=== PATIENT | male | born 1945 | race Caucasian/White ===

== ENCOUNTER → 2019-04-15 | Outpatient (CLI) | payer OTHER, MEDICARE ==
[~2019-04-15] VITALS: Ht 177.8 cm; Wt 117.9 kg
[~2019-04-15] MED LIST: ASPIR 8181 MG PO; ATENOLOL 50MG T50 M1 PO; COREG25 MG PO; HYDROCHLOROTHIA25 M2 PO; LOSARTAN POTAS100 MG PO; MILK THISTLE150 MG PO; OMEGA 3-6-9 11200 M1 PO; OMEPRAZOLE40 MG PO; PRESERVISION A1 EAC2 PO; REFRESH OPTIVE15 ML OPHTHALMIC; SYSTANE GEL10 GM OPHTHALMIC; TURMERIC500 M2 PO; VITAMIN B-12500 MCG PO; ZYLOPRIM300 MG PO
--- NOTE | 2019-04-15 13:26 | P ---
[facility] [place] [address] PROCEDURE REPORT Name: ANEUDYEDUARDO Quinn Room #: REG [facility].#: [id number] Admission: 04/15/19 Attend Phys: Eran Padgett MD Discharge: Date of : 49 Report #: [id number] THIS REPORT FOR: //name// CC: Eran Lopez MEDICAL OFFICE ASST DATE OF SERVICE: 04/15/2019 OUTPATIENT COLONOSCOPY REPORT BRIEF HISTORY: The patient is a 73-year-old male with a history of multiple adenomas for high risk screening colonoscopy. PREOPERATIVE DIAGNOSIS: High risk screening colonoscopy. POSTOPERATIVE DIAGNOSES: 1. Diminutive polyp at 60 cm. 2. Moderate sigmoid diverticulosis coli. 3. Small internal hemorrhoids. MEDICATIONS: Deep sedation with propofol per anesthesia. SPECIMEN: Polyp from 60 cm. ESTIMATED BLOOD LOSS: 3 mL. PROCEDURE: Colonoscopy to cecum and terminal ileum with biopsy. FINDINGS: Prior to propofol sedation, procedure of colonoscopy discussed with the patient as well as potential risks and its complications. He indicates he understands and desires to proceed. DESCRIPTION OF PROCEDURE: With the patient in left lateral decubitus position, digital examination was completed, which revealed no abnormalities. Subsequently, the Olympus video colonoscope was introduced into the rectum, advanced under direct vision to the cecum. Done with minimal difficulty where the cecum was identified by the ileocecal valve and the appendiceal orifice. I was able to visualize the distal segment of the terminal ileum, which was inspected and noted to be unremarkable. At that point, the scope was slowly withdrawn and careful circumferential views were obtained. Upon slow withdrawal of the scope, the prep was generally good, although there were some limitations with some retained bilious material in the proximal colon. This was cleaned up as well as possible. As we withdrew the scope, the mucosa was inspected and noted to be within normal limits, normal vascular pattern, normal light reflex. No abnormalities were noted until we withdrew the scope into the descending [facility] [address] [place] [address] PROCEDURE REPORT Name: EDUARDO AMADO Room #: REG [facility].#: [id number] Admission: 04/15/19 Attend Phys: Eran Padgett MD Discharge: Date of : 49 Report #: [id number] colon at 60 cm. A diminutive polyp was seen and removed with biopsy forceps. Scope was further withdrawn and no additional polyps were seen. In the sigmoid colon, there was noted to be moderate diverticular disease without endoscopic evidence of diverticulitis. Scope was withdrawn in the rectum, no abnormalities were seen. Upon retroflexion, small hemorrhoids were seen. Scope was withdrawn. The patient tolerated the procedure well. CONDITION OF THE PATIENT UPON DISCHARGE: Following procedure, the patient drowsy, aroused, conversant and will be discharged home when fully ambulatory. INSTRUCTIONS TO THE PATIENT AND FAMILY AT THE TIME OF DISCHARGE: We will follow up on the path. However, in view of his history of polyps and finding of polyps today, I suggest followup colon exam in 5 years. Also, suggest high-fiber diet. He will return to care of Aury Lopez, return to see me as needed. Withdrawal time from the cecum was 16 minutes 56 seconds. <ELECTRONICALLY SIGNED> By: Eran Padgett MD 04/15/19 1326 0811 1050 Eran Padgett MD /nt
--- NOTE | 2019-04-18 18:06 | PATH ---
[facility] [address] [place] [address] PATHOLOGY RPT PROCEDURE Name: MIKI HALEY Quinn Room #: REG [facility] Sha.#: [id number] Admission: 04/15/19 Date of : 49 Discharge: Report #: [id number] Path Case #: [id number] [facility] Accession Number: [id number] . 01 Material submitted: . colon - BIOPSY POLYP AT 60CM . 01 Clinical history: . Pre-OP DX: Hx polyps Post-OP DX: Colon polyp, diverticulosis, hemorrhoids . 02 Diagnosis: Polyp, at 60 cm, endoscopic biopsy: - Tubular adenoma. - Negative for high-grade dysplasia. (IUV:pit; 04/18/2019) QTP/04/18/2019 . 02 Electronically signed: . Janis Beltrán MD, Pathologist NPI- [id number] . 01 Gross description: . Received in formalin labeled "Miki Haley, BX polyp at 60 cm," is a single segment of mtz soft tissue measuring 0.5 cm in maximum dimension. The specimen is entirely submitted in cassette A1. (TSD; 04/15/2019) TOB/TOB . 02 Pathologist provided ICD-10: D12.6 . 02 CPT . 522720 Specimen Comment: A courtesy copy of this report has been sent to Specimen Comment: [phone], . Specimen Comment: Report sent to / DR ARMSTRONG Performed at: [address] [id number] MD Rickie Crawford MD Phone: [phone] Performed at: [address] [id number] MD Janis Beltrán MD Phone: [phone]
== END | disposition home or self-care (01) ==
LOC: GI 06:20
DX: Z12.11 Encounter for screening for malignant neoplasm of colon (principal); Z86.010 Personal history of colon polyps; D12.4 Benign neoplasm of descending colon; K57.30 Diverticulosis of large intestine without perforation or abscess without bleeding; K64.8 Other hemorrhoids; G47.30 Sleep apnea, unspecified; I10 Essential (primary) hypertension; E78.5 Hyperlipidemia, unspecified; K21.9 Gastro-esophageal reflux disease without esophagitis; I48.91 Unspecified atrial fibrillation; G62.9 Polyneuropathy, unspecified; Z98.41 Cataract extraction status, right eye; Z98.42 Cataract extraction status, left eye; Z87.891 Personal history of nicotine dependence; Z79.899 Other long term (current) drug therapy; Z79.82 Long term (current) use of aspirin; Z79.01 Long term (current) use of anticoagulants
CPT/HCPCS: 62110; 62900

== ENCOUNTER → 2020-07-11 | Outpatient (CLI) | payer OTHER, MEDICARE | LOC: LAB 14:53 | PROVIDERS: ATTEND Family Medicine | DX: U07.1 COVID-19 (principal) ==

== ENCOUNTER 2020-07-16 09:03 | Inpatient (IN) | payer OTHER, MEDICARE ==
[~2020-07-16] VITALS: Ht 177.8 cm; Wt 108.4 kg
--- NOTE | ~2020-07-16 | HC ---
[facility] [place] [address] CONSULTATION Name: EDUARDO AMADO Room #: 353-[facility] IN M.R.#: [id number] Admission: 07/16/20 Attend Phys: Felipe Sotddard MD Discharge: Date of : 49 Report #: [id number] THIS REPORT FOR: cc: Aury Lopez DNP, Mary E. DNP Elia, Manana MD ~ DATE OF SERVICE: 07/22/2020 SUBJECTIVE: Per nurse report, the patient is doing okay. He does not have headaches, does not have any bleeding epistaxis. VITAL SIGNS: Blood pressure 135/77, heart rate 79, temperature 97.3. Physical exam is not done because the patient is in COVID-19 isolation. LABORATORY DATA: White count 13.5, hemoglobin 10.4, platelets 2. ASSESSMENT AND PLAN: 1. Idiopathic thrombocytopenic purpura. The patient's platelets were somewhat better yesterday, today down again to 2. He did not respond to IVIG. He will be seen by Dr. Collier tomorrow. Dr. Collier is planning to start Rituxan. 2. Anemia, stable. By: 2316 0149 Louise Bales MD /nt
[2020-07-16 09:08] VITALS: BP 139/79
[2020-07-16] MEDS ORDERED: METFORMIN HCL500 M3 PO (09:32)
[2020-07-16] MEDS ORDERED: DILTIAZEM 24HR240 M1 PO (09:32)
[2020-07-16 11:06] LABS: BASOPHILS 0.4 % (0.0-2.0); EOSINOPHILS 1.8 % (0.0-3.0); HEMATOCRIT 37.7 % (42.0-52.0); LYMPHOCYTES 15.2 % (24.0-44.0); MCH 30.8 pg (26.0-34.0); MCHC 34.3 g/dL (28.0-37.0); MCV 89.8 fL (80.0-100.0); MONOCYTES 8.2 % (1.0-8.0); POLYS 74.4 % (36.0-66.0); RDW 14.3 % (10.5-14.5); WBC 6.8 thou/uL (4.0-11.0)
[2020-07-16 11:13] LABS: CALCIUM 9.5 mg/dL (8.5-10.1); POTASSIUM 4.1 mmol/L (3.5-5.1)
[2020-07-16 11:20] LABS: INR 1.1; PROTIME 11.4 Seconds (9.3-11.4)
[2020-07-16 11:28] LABS: PLATELET ESTIMATE MARKEDLY DECREASED
[2020-07-16 11:30] LABS: PLATELET COUNT 3 thou/uL (150-400)
[2020-07-16 12:34] LABS: URINE BILIRUBIN NEGATIVE (Negative); URINE BLOOD 2+ (Negative); URINE CLARITY CLEAR; URINE COLOR YELLOW; URINE GLUCOSE-RANDOM* NEGATIVE (Negative); URINE KETONES NEGATIVE (Negative); URINE LEUKOCYTES-REFLEX NEGATIVE (Negative); URINE NITRITE-REFLEX NEGATIVE (Negative); URINE PROTEIN (DIPSTICK) NEGATIVE (Negative); URINE SPECIFIC GRAVITY 1.015 (1.005-1.035)
[2020-07-16 12:54] LABS: CASTS None Seen /LPF (None Seen); CRYSTALS None Seen /LPF (None Seen); SQUAMOUS 0-3 Few /LPF (0-3); URINE RBC >20 Many /HPF (0-2); URINE WBC-REFLEX 0-5 Rare /HPF (0-5)
[2020-07-16 12:55] LABS: BACTERIA-REFLEX 1-9 Few /HPF (None Seen)
[2020-07-16 15:31] LABS: % SATURATION 18 % (20-39); IRON 47 ug/dL (65-175); TIBC 264 ug/dL (250-450)
[2020-07-16 15:39] VITALS: BP 124/89; BP 132/87
--- NOTE | 2020-07-16 17:33 | NUR ---
PER DR GALVEZ, HOLDING OFF ON 2ND TRANSFUSION UNTIL REPEAT PLATELET COUNT
[2020-07-16 18:13] VITALS: BP 138/69
[2020-07-16 19:28] VITALS: BP 127/71
[2020-07-16 19:55] VITALS: BP 139/81
[2020-07-17] VITALS (7 sets, daily range): BP systolic 129–152; BP diastolic 70–101
--- NOTE | 2020-07-17 02:56 | NUR ---
ASSUMED CAER OF PT FROM ED AT 2000HRS. PT AOX4 AND UP AD MARCO. PT WAS ORIENTED TO THE UNIT AND HIS ROOM. PT WAS ABLE TO ANSWER ALL ADMISSION RELATED QUESTIONS AND PROVIDE VERBAL CONSENT. PT HAS A BLEEDING LEISION ON THE RIGHT SIDE OF HIS MOUTH. UNABLE TO TAKE PICTURE DUE TO LOCATION OF THE WOUND. SECOND PLATELET TRANSFUSED. PT IS AFIB ON TELE. PT WAS ABLE TO GET COMFORTABLE AND SLEEP PART OF THE SHIFT. WILL CONTINUE TO MONITOR.
[2020-07-17 03:06] LABS: HEMOGLOBIN 13.1 g/dL (13.0-17.7)
[2020-07-17 05:00] LABS: EOSINOPHILS 0.1 % (0.0-3.0); HEMOGLOBIN 12.2 gm/dL (14.0-18.0); WBC 7.7 thou/uL (4.0-11.0)
[2020-07-17 05:01] LABS: ABSOLUTE NEUTROPHILS 6.8 thou/uL (1.4-8.2); BASOPHILS 0.4 % (0.0-2.0); HEMATOCRIT 35.6 % (42.0-52.0); LYMPHOCYTES 9.9 % (24.0-44.0); MCH 30.8 pg (26.0-34.0); MCHC 34.4 g/dL (28.0-37.0); MCV 89.5 fL (80.0-100.0); POLYS 87.6 % (36.0-66.0); RBC 3.97 mil/uL (4.50-6.00); RDW 14.1 % (10.5-14.5)
[2020-07-17 05:29] LABS: PLATELET COUNT 2 thou/uL (150-400)
[2020-07-17 05:53] LABS: ALBUMIN 3.3 g/dL (3.4-5.0); CALCIUM 9.7 mg/dL (8.5-10.1); POTASSIUM 3.8 mmol/L (3.5-5.1); TOTAL BILIRUBIN 0.4 mg/dL (0.2-1.0); TOTAL PROTEIN 7.7 g/dL (6.4-8.2)
[2020-07-17 07:07] LABS: PLATELET ESTIMATE MARKEDLY DECREASED
--- NOTE | 2020-07-17 14:10 | NUR ---
INITIAL ASSESSMENT: SW reviewed chart and spoke with nursing and attending physician. Pt was admitted from home due to COVID-19. Pt is in Enhanced Isolation. Pt is afebrile and not requiring O2. Pt is on IV abx. Hem/Onc consulted. Pt to be on IVIG. Pt with hx of DM/HTN/SARA. Pt with daily ETOH use. SW spoke with pt via phone. Introduced role of SW. Pt is alert/orientated x 4. Pt reports he lives at home alone. Prior to admission, pt was independent with ADLs. No use of DME. Pt does drive. 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 No hx of services or post-acute placement. Pt's PCP is Dr. Aury Lopez. Pt states his goal is to return home. SW is following to assist as needed with discharge planning.
--- NOTE | 2020-07-17 18:08 | NUR ---
ASSUMED PATIENT CARE AT 0700. A/O X4. NO SOB NOTED. VSS. TOLERATED ON RA. NO BLEEDING NOTED. SLOWLY TOWARDS POC GOALS.
[2020-07-17 22:06] LABS: IgA 317 mg/dL (61-437); IgG 1080 mg/dL (603-1613); IgM 190 mg/dL (15-143)
[2020-07-18 03:14] VITALS: BP 143/93
--- NOTE | 2020-07-18 05:57 | NUR ---
ENT ROUNDED ON PT. ORDERS RECEIVED. PT WILL NEED TO F/U OUTPATIENT. FOLLOWING POC WITH IVPB ANTIBIOTIC AND IGG IVF. PT USES CPAP AT HS. VSS, AFEBRILE AND NO COMPLAINTS.
[2020-07-18 07:28] VITALS: BP 132/82
--- NOTE | 2020-07-18 08:39 | HC ---
[facility] [place] [address] CONSULTATION Name: EDUARDO AMADO Room #: 353-P [facility] IN M.R.#: [id number] Admission: 07/16/20 Attend Phys: Felipe Stoddard MD Discharge: Date of : 49 Report #: [id number] THIS REPORT FOR: cc: Aury Lopez DNP, Mary E. DNP McKittrick, Richard James MD ~ REQUESTING PHYSICIAN: Dr. Felipe Stoddard. REASON FOR CONSULTATION: Thrombocytopenia. HISTORY OF PRESENT ILLNESS: The patient is a very pleasant 74-year-old gentleman who has a history of about 10 days prior to admission, losing his sense of smell, tested positive for COVID I believe about 6 days ago if I understand correctly and then was noted about 3 days prior to have a blood blister in his mouth where he may have bit himself. He came to the Emergency Room because he tested positive for COVID 6 days ago. He had fatigue, which had been improving, noted a sore inside of his mouth, also had nosebleeds. He never had this issue before. In the Emergency Room, he was found to have platelets of 3000 and in spite of 2 different transfusions, the platelets are 2000, 3000 and today 2000. During the same time, his white count has been 6.8, now 7.7; hemoglobin 13, now 12.2; MCV 89.8, now 89.5; RDW 14.1, white count differential stable without any acute changes. On the peripheral smear, his white count is described as 5. Electrolytes are normal including creatinine of 1, glucose slightly elevated at 182, AST 29, SGPT 33, albumin 3.3, LDH 463, iron was 47, percent saturation 18, TIBC 264. C-reactive protein elevated at 15. INR of 1.1. APTT 28. Fibrinogen 352.7. Note that anticardiolipin antibodies and quantitative immunoglobulins are pending. SIFE is pending. Ferritin is elevated at 629. B12 is 1773 elevated, folate 20.0, hepatitis A IgM pending. COVID was detected on 07/11/2020. His recent imaging includes a chest x-ray with no significant change with persistent scattered mild patchy pulmonary opacities without evidence of consolidating infiltrate, pneumothorax or significant pleural effusion. Abdominal ultrasound is pending, 1 was done in 2016; at that time, described a liver length of 17.4 cm. REVIEW OF SYSTEMS: The patient denies fevers, chills, maybe has a very slight cough while clearing his throat. Does have the blood blisters in his mouth and also on his skin. No diarrhea, no constipation. No significant blood in his urine or stool. Weight is unchanged. PAST MEDICAL HISTORY: Notable for diabetes, hypertension, hyperlipidemia, obstructive sleep apnea, tonsillectomy in the past, right knee surgery in the past. He has also had a colonoscopy in the past. He does not really know that his platelets were low in the past. He did have some type of blood blisters or rash several years, but does not sound like his platelets were checked. He has also been on aspirin and has not taken it for the last several days. 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 He admits to drinking more than he should. As mentioned, he owns several restaurants and bars, drinks alcohol daily. Quit smoking, no street drugs. about 13 years ago from an aneurysm. FAMILY HISTORY: No children, has a niece who helps keep an eye on him. Heart disease in his family and also hypertension. PHYSICAL EXAMINATION: VITAL SIGNS: Height is 5 feet 10, 177.8 cm. Weight 256 pounds or 116.1 kilograms. Recent blood pressure 152/101, before that had been 147/84; O2 sat 96%, respirations 16 or 18, pulse 71, temperature afebrile at 98. NEUROLOGIC: Speech and thought pattern are normal. Moving extremities well. LYMPHATICS: No enlarged lymph nodes in the supraclavicular, cervical, axillary or inguinal region. ABDOMEN: Obese. No definite organomegaly, no concern. EXTREMITIES: Without clubbing, cyanosis or edema. SKIN: Notable for the small ecchymosis and purpura in his mouth by his description and also some on his extremities. ASSESSMENT AND PLAN: 1. Thrombocytopenia without benefit of 2 transfusions suggesting this is destructive in nature, most likely idiopathic or immunologic. Serologic tests for paraprotein are pending. Also, ultrasound to look for adenopathy, splenomegaly or hepatomegaly is pending. We will initiate or have initiated since last night dexamethasone 40 mg daily for 4 days; also, IVIG 400 mg/kg per day for 5 days. Discussed with the patient. Hopefully, with time, we would see his platelet count increased. Described that this may be related to COVID as this has been reported. Hopefully, there will be an improvement in another issue again, though we described that in the doses can require additional therapy such as rituximab or medicines that are held for platelet growth factors; may also need to consider bone marrow biopsy if this does not improve. 2. Diabetes, sliding scale insulin and diet per others. 3. COVID positive. Defer to Dr. John Turner. 4. Alcohol use. Encouraged cessation. 5. Obstructive sleep apnea. Defer CPAP to others. 6. Hypertension. Meds per others. 7. Hyperlipidemia. Meds per others. CURRENT MEDICATIONS: At this time in the hospital include vitamin D 2000 units daily, zinc sulfate 220 mg daily, thiamine 100 mg daily, ceftriaxone 1 gram q. 24, famotidine 20 b.i.d., vitamin C 1500 b.i.d., azithromycin 500 mg daily, Tylenol p.r.n., MiraLax daily as needed, Zofran p.r.n., dexamethasone 40 mg [facility] [address] [place] [address] CONSULTATION Name: EDUARDO AMADO Room #: 353-P [facility] IN M.R.#: [id number] Admission: 07/16/20 Attend Phys: Felipe Stoddard MD Discharge: Date of : 49 Report #: [id number] daily x 4 days, IVIG as mentioned above 400 mg/kg per day for 5 days. We will follow with you. <ELECTRONICALLY SIGNED> By: Krzysztof Collier MD 07/18/20 0839 0908 1001 Krzysztof Collier MD /nt
--- NOTE | 2020-07-18 08:59 | NUR ---
RD consult received for poor intake. Admit with COVID+ and mouth lesion with bleed which has stopped. Spoke with RN who indicated no trouble eating and ate 80% yesterday. Low nutrition risk
[2020-07-18 09:45] LABS: HEMOGLOBIN 11.3 gm/dL (14.0-18.0); MCHC 33.5 g/dL (28.0-37.0)
[2020-07-18 09:46] LABS: HEMATOCRIT 33.6 % (42.0-52.0); MCH 30.4 pg (26.0-34.0); MCV 90.5 fL (80.0-100.0); RBC 3.71 mil/uL (4.50-6.00); RDW 14.2 % (10.5-14.5); WBC 13.4 thou/uL (4.0-11.0)
[2020-07-18 10:29] LABS: ABSOLUTE NEUTROPHILS 12.9 thou/uL (1.4-8.2); NUCLEATED RBCS 1 /100WBC
[2020-07-18 10:30] LABS: PLATELET ESTIMATE MARKEDLY DECREASED
[2020-07-18 10:32] LABS: PLATELET COUNT 1 thou/uL (150-400)
--- NOTE | 2020-07-18 13:49 | NUR ---
SW reviewed chart and spoke with nursing and attending physician. Pt remains in Enhanced Isolation due to COVID-19. Pt is afebrile and not requiring O2. Pt is on IV abx and IV steroids. Pt is on IVIG. Hem/Onc following. Plan is for pt to discharge home when medically stable. SW is following to assist as needed with discharge planning.
[2020-07-18 15:42] VITALS: BP 148/90
--- NOTE | 2020-07-18 18:21 | NUR ---
pt spit up piece bloody oral lesion/scab into specimen cup. submitted to lab. ENT notified. no orders received.
[2020-07-18 19:55] VITALS: BP 150/86
[2020-07-19 03:43] VITALS: BP 159/83
[2020-07-19 06:02] LABS: BASOPHILS 0.3 % (0.0-2.0); HEMOGLOBIN 10.5 gm/dL (14.0-18.0)
[2020-07-19 06:05] LABS: ABSOLUTE NEUTROPHILS 11.3 thou/uL (1.4-8.2); HEMATOCRIT 31.2 % (42.0-52.0); LYMPHOCYTES 7.1 % (24.0-44.0); MCH 30.5 pg (26.0-34.0); MCHC 33.8 g/dL (28.0-37.0); MCV 90.4 fL (80.0-100.0); MONOCYTES 5.6 % (1.0-8.0); RBC 3.45 mil/uL (4.50-6.00); RDW 14.1 % (10.5-14.5)
[2020-07-19 06:26] LABS: PLATELET COUNT 3 thou/uL (150-400)
[2020-07-19 08:44] VITALS: BP 170/91
--- NOTE | 2020-07-19 11:34 | NUR ---
ON-GOING ASSESSMENT: CM REVIEWED CHART. PT REMAINS IN ENAHNCED ISOLATION DUE TO COVID 19. PT IS STILL ON IV ANBX, IV IG. PT IS NOT CURRENTLY ON ANY OXYGEN. PTS PLATELETS REMAIN LOW AND HEM/ONC FOLLOWING. PT IS FROM HOME. CM WILL CONTINUE TO FOLLOW TO ASSIST NEEDED.
[2020-07-19 11:59] VITALS: BP 169/89
[2020-07-19 15:32] VITALS: BP 145/81
--- NOTE | 2020-07-19 18:03 | NUR ---
ASSUMED PATIENT CARE AT 0700. A/O X4. AMBULATED IN ROOM. NO BLEEDING NOTED. PROGRESSING TOWARDS POC CARE.
[2020-07-19 19:58] VITALS: BP 149/84
[2020-07-20 03:48] VITALS: BP 169/87
--- NOTE | 2020-07-20 05:42 | NUR ---
resting quietly tonight. denies pain. no red discarge from nose or any other orifice. urine is becoming more light yellow. steady gait. careplan reviewed.
[2020-07-20 06:05] LABS: RDW 14.4 % (10.5-14.5)
[2020-07-20 06:07] LABS: HEMATOCRIT 29.8 % (42.0-52.0); HEMOGLOBIN 10.1 gm/dL (14.0-18.0); MCH 30.6 pg (26.0-34.0); MCHC 33.7 g/dL (28.0-37.0); MCV 90.9 fL (80.0-100.0); RBC 3.28 mil/uL (4.50-6.00); WBC 12.8 thou/uL (4.0-11.0)
[2020-07-20 06:23] LABS: PLATELET COUNT 1 thou/uL (150-400)
[2020-07-20 07:25] VITALS: BP 183/112
[2020-07-20 10:28] LABS: ATYPICAL LYMPHS 1 %
[2020-07-20 10:34] LABS: ANISOCYTOSIS 1+
--- NOTE | 2020-07-20 14:26 | NUR ---
ON-GOING ASSESSMENT: CM REVIEWED CHART AND SPOKE WITH ATTENDING. PT REMAINS IN ENHANCED ISOLATION DUE TO COVID 19. PT IS NOT CURRENTLY REQUIRING ANY OXYGEN. PT REMAINS ON IX ANTIBIOTICS AND IV STEROIDS. PTS PLATELET COUNT IS 1 AND PT PS RECEIVING IVIG. NO PLANS FOR WEEKEND DISCHARGE. PT IS FROM HOME. CM WILL CONTINUE TO FOLLOW TO ASSIST NEEDED.
[2020-07-20 15:22] VITALS: BP 136/83
--- NOTE | 2020-07-20 17:59 | NUR ---
[place] [address]. PT ALERT AND ORIENTED X4 IN NO ACUTE DISTRESS, PLEASANT, VOICING NO COMPLAINTS. REPORTS BLEEDING IMPROVED. TACHYCARDIA WITH ACTIVITY - ASYMPTOMATIC. CARDIO CONSULTED - MEDS ADJUSTED. WCM. WAITING ON PLT COUNT TO STABILIZE > 10 FOR D/C PLANNING.
[2020-07-20 19:50] VITALS: BP 172/108
[2020-07-21 03:36] VITALS: BP 149/81
[2020-07-21 05:26] LABS: HEMOGLOBIN 9.9 gm/dL (14.0-18.0); MCH 30.5 pg (26.0-34.0)
[2020-07-21 05:28] LABS: HEMATOCRIT 29.7 % (42.0-52.0); MCHC 33.5 g/dL (28.0-37.0); MCV 91.1 fL (80.0-100.0); RBC 3.26 mil/uL (4.50-6.00); RDW 14.4 % (10.5-14.5); WBC 13.2 thou/uL (4.0-11.0)
[2020-07-21 05:38] LABS: PLATELET COUNT 3 thou/uL (150-400)
[2020-07-21 06:05] LABS: ABSOLUTE NEUTROPHILS 10.4 thou/uL (1.4-8.2); ANISOCYTOSIS 2+; LARGE PLATELETS RARE; NUCLEATED RBCS 2 /100WBC; PLATELET ESTIMATE MARKEDLY DECREASED; POLYCHROMASIA 1+
--- NOTE | 2020-07-21 06:23 | NUR ---
resting quietly tonight. denies pain. no signs of bleeding. urine much sign carpenter, buccal soreness decreased. no nasal discharge.
[2020-07-21 07:38] VITALS: BP 162/98
[2020-07-21 15:41] VITALS: BP 137/95
[2020-07-21 19:37] VITALS: BP 124/72
--- NOTE | 2020-07-22 01:33 | NUR ---
PT ALERT AND ORIENTED X4. VSS AFEBRILE. UNLABORED ON RA. NO C/O PAIN. NO S/S DISTRESS, IV RESTARTD L FA FOR IV ABX. WILL CONTINUE TO MONITOR FOR CHANGES.
[2020-07-22 03:12] VITALS: BP 130/76
[2020-07-22 03:19] VITALS: BP 184/93
[2020-07-22 05:08] LABS: HEMATOCRIT 30.8 % (42.0-52.0); HEMOGLOBIN 10.4 gm/dL (14.0-18.0); MCH 30.8 pg (26.0-34.0); MCHC 33.7 g/dL (28.0-37.0); MCV 91.4 fL (80.0-100.0); RBC 3.37 mil/uL (4.50-6.00); RDW 14.7 % (10.5-14.5); WBC 13.5 thou/uL (4.0-11.0)
[2020-07-22 05:11] LABS: PLATELET COUNT 2 thou/uL (150-400)
[2020-07-22 06:13] LABS: ABSOLUTE NEUTROPHILS 8.9 thou/uL (1.4-8.2); LARGE PLATELETS OCCASIONAL; MYELOCYTES 1 %; NUCLEATED RBCS 3 /100WBC; PLATELET ESTIMATE MARKEDLY DECREASED; POLYCHROMASIA 1+
[2020-07-22 07:18] VITALS: BP 135/77
[2020-07-22 08:53] LABS: CALCIUM 8.5 mg/dL (8.5-10.1); POTASSIUM 4.2 mmol/L (3.5-5.1)
[2020-07-22 15:50] VITALS: BP 110/70
--- NOTE | 2020-07-22 18:26 | NUR ---
PROGRESSING TOWARDS POC GOALS. NO BLEEDING NOTED.
[2020-07-22 19:33] VITALS: BP 121/82
--- NOTE | 2020-07-23 01:06 | NUR ---
PT AMBULATING TO BATHROOM INDEPENDENTLY AND IS TOLERATING WELL. DENIES PAIN. RESTING COMFORTABLY. NO NEEDS VOICED. CALL LIGHT WITHIN REACH. FREQUENT OBSERVATION.
[2020-07-23 03:33] VITALS: BP 126/74
[2020-07-23 06:21] LABS: HEMATOCRIT 33.4 % (42.0-52.0); HEMOGLOBIN 11.2 gm/dL (14.0-18.0); MCH 30.9 pg (26.0-34.0); MCHC 33.4 g/dL (28.0-37.0); MCV 92.5 fL (80.0-100.0); RBC 3.61 mil/uL (4.50-6.00); WBC 10.8 thou/uL (4.0-11.0)
[2020-07-23 06:33] LABS: PLATELET COUNT 3 thou/uL (150-400)
[2020-07-23 07:51] VITALS: BP 120/76
[2020-07-23 09:38] LABS: ABSOLUTE NEUTROPHILS 5.6 thou/uL (1.4-8.2); METAMYELOCYTES 2 %; NUCLEATED RBCS 1 /100WBC; PLATELET ESTIMATE MARKEDLY DECREASED
[2020-07-23 12:13] VITALS: BP 120/76
--- NOTE | 2020-07-23 14:57 | NUR ---
SW reviewed chart and spoke with nursing and attending physician. Pt remains in Enhanced Isolation due to COVID-19. Pt is afebrile and not requiring O2. Pt's platelet count remains low. Pt to start Rituximab today per Hem/Onc. Plan is for pt to discharge home when medically stable. SW is following to assist as needed with discharge planning.
[2020-07-23 15:00] VITALS: BP 111/59
--- NOTE | 2020-07-23 16:18 | NUR ---
PEROGRESSING TOWARDS POC GOALS.
[2020-07-23 21:34] VITALS: BP 128/79
[2020-07-24] VITALS (10 sets, daily range): BP systolic 99–129; BP diastolic 54–81
[2020-07-24 06:02] LABS: BASOPHILS 0.7 % (0.0-2.0); EOSINOPHILS 1.1 % (0.0-3.0); HEMOGLOBIN 11.9 gm/dL (14.0-18.0); POLYS 65.6 % (36.0-66.0); RDW 15.2 % (10.5-14.5)
[2020-07-24 06:05] LABS: ABSOLUTE NEUTROPHILS 6.1 thou/uL (1.4-8.2); HEMATOCRIT 35.9 % (42.0-52.0); LYMPHOCYTES 22.1 % (24.0-44.0); MCH 30.9 pg (26.0-34.0); MCHC 33.2 g/dL (28.0-37.0); MONOCYTES 10.5 % (1.0-8.0); RBC 3.86 mil/uL (4.50-6.00); WBC 9.4 thou/uL (4.0-11.0)
[2020-07-24 06:13] LABS: PLATELET COUNT 2 thou/uL (150-400)
--- NOTE | 2020-07-24 07:16 | NUR ---
PATIENT FOLLOWING UP ABOUT HIS CHMO DRUG;PHARMACY SAID TO BE GIVEN TODAY IN THE AFTERNOON.USES CPAP AT NIGHT.MONITOR SHOWS AFIB.POC CONTINUED.
--- NOTE | 2020-07-24 11:42 | NUR ---
RD visited with pt via phone today. Pt reporting good appetite and feels he is eating at baseline. No complaints of GI distress. Pt with no nutritional questions/concerns at this time. No nutritional interventions planned. Pt at low nutritional risk.
--- NOTE | 2020-07-24 15:02 | NUR ---
SW reviewed chart and spoke with nursing and attending physician. Pt remains in Enhanced Isolation due to COVID-19. Pt is afebrile and not requiring O2. Pt's platelet count remains low. Plan is for pt to discharge home when medically stable. SW is following to assist as needed with discharge planning.
--- NOTE | 2020-07-24 19:39 | NUR ---
INFUSED CHEMO MED TODAY AND PT TOLERATED WELL. HE DID NOT COMPLAIN OF PAIN OR SOB. WILL CONT WITH PLAN OF CARE.
--- NOTE | 2020-07-25 06:01 | NUR ---
PT UP AD MARCO, VSS, AND NO COMPLAINTS FROM PT OVERNIGHT. PT ANTICIPATES TO DC TODAY 07/25 AND RECEIVE OUT PATIENT INFUSION THERAPY. ISOLATION PRECAUTIONS IN PLACE.
[2020-07-25 06:22] LABS: HEMOGLOBIN 11.3 gm/dL (14.0-18.0); MCHC 33.3 g/dL (28.0-37.0); RBC 3.65 mil/uL (4.50-6.00)
[2020-07-25 06:24] LABS: HEMATOCRIT 33.8 % (42.0-52.0); MCH 30.8 pg (26.0-34.0); MCV 92.5 fL (80.0-100.0); RDW 15.3 % (10.5-14.5); WBC 7.2 thou/uL (4.0-11.0)
[2020-07-25 06:36] LABS: PLATELET COUNT 4 thou/uL (150-400)
[2020-07-25 07:33] VITALS: BP 131/82
[2020-07-25 10:45] LABS: ABSOLUTE NEUTROPHILS 4.8 thou/uL (1.4-8.2); METAMYELOCYTES 1 %; PLATELET ESTIMATE MARKEDLY DECREASED
[2020-07-25 10:46] LABS: LARGE PLATELETS FEW
[2020-07-25 11:10] VITALS: BP 121/59
[2020-07-25 15:17] VITALS: BP 117/58
--- NOTE | 2020-07-25 15:38 | NUR ---
SW reviewed chart and spoke with nursing and attending physician. Pt remains in Enhanced Isolation due to COVID-19. Repeat COVID test ordered today, as pt will be doing outpatient Rituximab infusion per Hem/Onc. Pt is afebrile and no requiring O2. Plan is for pt to discharge home when medically stable. FINESSE is following to assist as needed with discharge planning.
--- NOTE | 2020-07-25 18:44 | NUR ---
PATIENT HAD WISHED HE WENT HOME TODAY. BUT DR CONNOR STATED HE WILL GO HOME TOMORROW. HE WILL HAVE TO RESCHEDULE CHEMO APPT AT . PLEASANT WITH CARE. NO COMPLAIN OF PAIN. WILL CONT WITH PLAN OF CARE.
[2020-07-25 19:49] VITALS: BP 126/68
[2020-07-26 03:09] LABS: HEMOGLOBIN 11.3 gm/dL (14.0-18.0); WBC 5.8 thou/uL (4.0-11.0)
[2020-07-26 03:11] LABS: HEMATOCRIT 34.2 % (42.0-52.0); MCH 30.5 pg (26.0-34.0); MCV 92.3 fL (80.0-100.0); RDW 15.6 % (10.5-14.5)
[2020-07-26 03:23] VITALS: BP 119/80
[2020-07-26 03:28] LABS: PLATELET COUNT 2 thou/uL (150-400)
--- NOTE | 2020-07-26 06:35 | NUR ---
PT STATES HE IS READY TO GO HOME. CRITICAL LAB CALLED BY ALONDRA IN LAB, PLT 2. PLT'S HAVE BEEN UP AND DOWN ALL WEEK. VSS, TELE SHOWS AFIB. PT UP AD MARCO.
[2020-07-26 07:22] VITALS: BP 138/78
[2020-07-26 08:52] LABS: ABSOLUTE NEUTROPHILS 2.8 thou/uL (1.4-8.2); LARGE PLATELETS RARE; METAMYELOCYTES 2 %; NUCLEATED RBCS 1 /100WBC; PLATELET ESTIMATE MARKEDLY DECREASED
[2020-07-26 08:53] LABS: POLYCHROMASIA SLIGHT
--- NOTE | 2020-07-26 11:00 | NUR ---
Patient to dc home and await COVID results. Dr Collier aware and arrangements in place for outpatient infusion center. [facility]
[2020-07-26 11:03] VITALS: BP 138/78
[2020-07-26 11:08] VITALS: BP 138/78
--- NOTE | 2020-07-26 11:22 | NUR ---
PT CARE ASSUMED AT 0700, ALERT AND ORIENTED X4, DENIES ANY PAIN NAUSEA AND VOMITTING. PT IS ON ROOM AIR, NO SIGNS OF DISTRESS. UP AD MARCO. ORDER FOR D/C IN. COVID TEST RESULTS PENDING, DR. SHABNAM CULP WITH PT GETTING D/C HOME, WHILE WAITING FOR COVID TEST.IV TAKEN OUT AND ORGANIZATIONAL EFFECTIVENESS DIRECTOR D/C. WAITING FOR DC HURA D/C NOTES AND MEDS.
[2020-07-26] MEDS ORDERED: COZAAR 50 MG TA50 M1 PO (11:50)
[2020-07-26] MEDS ORDERED: ACETAMINOPHEN325 M1 PO (11:50)
[2020-07-26] MEDS ORDERED: ACEROLA C500 MG PO (11:50)
[2020-07-26] MEDS ORDERED: ATENOLOL 25 MG25 M1 PO (11:50)
[2020-07-26 12:04] VITALS: BP 138/78
--- NOTE | 2020-07-26 12:44 | NUR ---
DISCHARGE INSTRUCTIONS AND PAPERWORK GIVEN TO PT. MED INFOR GIVEN TO PT.
--- NOTE | 2020-07-30 07:53 | EKG ---
[address] [address] ELECTROCARDIOGRAM REPORT Name: NAYELITOBIASEDUARDO Room #: 353-[facility] IN M.R.#: [id number] Admission: 07/16/20 Attend Phys: Felipe Stoddard MD Discharge: 07/26/20 Date of : 49 Report #: [id number] [facility] Test Date: 2020-07-20 Test Time: 11:45:56 Pat Name: EDUARDO AMADO Department: Room: 353 P Gender: M Business Analytics Director: HANS : 1945 Requested By: Felipe Stoddard Order Number: [id number] MD: Jn Law Measurements Intervals [place] Rate: 91 P: ID: QRS: 50 QRSD: 98 T: 44 QT: 376 QTc: 463 Interpretive Statements Atrial fibrillation Baseline wander in lead(s) V1 No previous ECG available for comparison Electronically Signed On 07-20-2020 15:57:57 TRANSPORT ENGINEER by Jn Law [email or web address] <ELECTRONICALLY SIGNED> By: Jn Law MD, [facility] 07/20/20 1557 1145 1145 Jn Law MD, FACC /EPI
== END 2020-07-26 12:32 | disposition home or self-care (01) | DRG 813 ==
LOC: ER 09:03 → 3W 12:51 → EROBS 12:51 → 3W 19:28
PROVIDERS: Emergency Medicine; Internal Medicine Hematology & Oncology; Nurse Practitioner; Specialist; ADMIT Hospitalist; ATTEND Hospitalist
PROC: 30233R1 Transfusion of Nonautologous Platelets into Peripheral Vein, Percutaneous Approach (ICD-10-PCS; principal; 2020-07-16)
PROC: 5A09357 Assistance with Respiratory Ventilation, Less than 24 Consecutive Hours, Continuous Positive Airway Pressure (ICD-10-PCS; 2020-07-17)
PROC: 5A09357 Assistance with Respiratory Ventilation, Less than 24 Consecutive Hours, Continuous Positive Airway Pressure (ICD-10-PCS; 2020-07-20)
PROC: 5A09357 Assistance with Respiratory Ventilation, Less than 24 Consecutive Hours, Continuous Positive Airway Pressure (ICD-10-PCS; 2020-07-24)
DX: D69.3 Immune thrombocytopenic purpura (principal); U07.1 COVID-19; I48.19 Other persistent atrial fibrillation; R04.0 Epistaxis; I10 Essential (primary) hypertension; K21.9 Gastro-esophageal reflux disease without esophagitis; M10.9 Gout, unspecified; G62.9 Polyneuropathy, unspecified; E78.5 Hyperlipidemia, unspecified; D64.9 Anemia, unspecified; F10.20 Alcohol dependence, uncomplicated; I25.10 Atherosclerotic heart disease of native coronary artery without angina pectoris; E55.9 Vitamin D deficiency, unspecified; E03.9 Hypothyroidism, unspecified; K13.70 Unspecified lesions of oral mucosa; E66.01 Morbid (severe) obesity due to excess calories; G47.33 Obstructive sleep apnea (adult) (pediatric); Z98.41 Cataract extraction status, right eye; Z68.34 Body mass index [BMI] 34.0-34.9, adult; Z23 Encounter for immunization; Z98.42 Cataract extraction status, left eye; Z82.49 Family history of ischemic heart disease and other diseases of the circulatory system; Z91.013 Allergy to seafood; Z87.891 Personal history of nicotine dependence; Z71.6 Tobacco abuse counseling
CPT/HCPCS: 10879